=== PATIENT | female | born 1960 | race Caucasian/White ===

== ENCOUNTER 2022-12-12 12:18 | Outpatient (CLI) | payer BC | END 2022-12-12 12:19 | disposition home or self-care (01) | LOC: LAB 12:18 | PROVIDERS: ATTEND Naturopath | DX: N95.8 Other specified menopausal and perimenopausal disorders (principal); R53.83 Other fatigue | CPT/HCPCS: 36415; 82728; 84403 ==

== ENCOUNTER 2023-02-13 13:44 | Outpatient (CLI) | payer BC | END 2023-02-13 13:45 | disposition home or self-care (01) | LOC: LAB 13:44 | PROVIDERS: ATTEND Naturopath | DX: R53.83 Other fatigue (principal); Z11.9 Encounter for screening for infectious and parasitic diseases, unspecified | CPT/HCPCS: 36415; 82728; 84403; 86317 ==

== ENCOUNTER 2023-05-22 14:35 | Outpatient (CLI) | payer BC | END 2023-05-22 14:36 | disposition home or self-care (01) | LOC: LAB 14:35 | PROVIDERS: ATTEND Naturopath | DX: R53.83 Other fatigue (principal) | CPT/HCPCS: 36415; 84403 ==

== ENCOUNTER 2024-01-11 09:29 | Outpatient (CLI) | payer BC ==
[2024-01-11 15:14] LABS: BASOPHILS % (AUTO) 0.9 %; EOSINOPHILS # (AUTO) 0.1 10^3/uL (0.0-0.7); EOSINOPHILS % (AUTO) 1.5 %; HCT - HEMATOCRIT 38.7 % (37.0-47.0); HGB - HEMOGLOBIN 12.5 g/dL (12.0-16.0); LYMPHOCYTES # (AUTO) 1.7 10^3/uL (1.5-3.5); LYMPHOCYTES % (AUTO) 36.8 %; MEAN CORPUSCULAR HEMOGLOBIN 31.3 pg (27.0-31.0); MEAN CORPUSCULAR HGB CONC 32.3 g/dL (32.0-36.0); MEAN CORPUSCULAR VOLUME 96.8 fL (81.0-99.0); MEAN PLATELET VOLUME 11.1 fL (7.9-10.8); MONOCYTES # (AUTO) 0.3 10^3/uL (0.0-1.0); MONOCYTES % (AUTO) 7.4 %; NEUTROPHILS # (AUTO) 2.4 10^3/uL (1.5-6.6); NEUTROPHILS % (AUTO) 53.2 %; PLT - PLATELET COUNT 234 10^3/uL (130-450); RED CELL DISTRIBUTION WIDTH 12.9 % (12.0-15.0); WHITE BLOOD COUNT 4.6 x10^3/uL (4.8-10.8)
[2024-01-11 15:55] LABS: ALBUMIN 4.4 g/dL (3.2-5.5); ALBUMIN/GLOBULIN RATIO 2.1 (1.0-2.2); ALKALINE PHOSPHATASE 58 IU/L (42-121); ALT ALANINE AMINOTRANSFERASE 13 IU/L (10-60); AST ASPARTATE AMINOTRANSFERASE 21 IU/L (10-42); BILIRUBIN,TOTAL 0.5 mg/dL (0.2-1.0); BUN - BLOOD UREA NITROGEN 9 mg/dL (6-20); CALCIUM 9.6 mg/dL (8.5-10.3); CARBON DIOXIDE - CO2 30 mmol/L (21-32); CHLORIDE 106 mmol/L (101-111); CHOL/HDL RATIO 3.5 (<4.4); CHOLESTEROL 217 mg/dL; CREATININE 0.6 mg/dL (0.6-1.3); CRP - C-REACTIVE PROTEIN < 0.5 mg/dL (<0.5); GFR - MDRD 101 (>89); GLUCOSE 90 mg/dL (74-104); HDL CHOLESTEROL 62 mg/dL; LDL CHOLESTEROL,CALCULATED 133 mg/dL; LDL/HDL RATIO 2.1 (<4.4); POTASSIUM 4.5 mmol/L (3.5-4.5); SODIUM 139 mmol/L (135-145); TOTAL PROTEIN 6.5 g/dL (6.4-8.9); TRIGLYCERIDES 110 mg/dL (48-352); VLDL CHOLESTEROL 22 mg/dL
[2024-01-11 15:56] LABS: THYROID STIMULATING HORMONE 1.53 uIU/mL (0.34-5.60)
[2024-01-11 16:02] LABS: FERRITIN 121.9 ng/mL (11.0-306.8)
[2024-01-11 20:17] LABS: ESTIMATED AVERAGE GLUCOSE 103 mg/dL (70-100); HEMOGLOBIN A1c% 5.2 % (4.27-6.07)
== END 2024-01-11 09:30 | disposition home or self-care (01) ==
LOC: LAB.S 09:29
PROVIDERS: ATTEND Naturopath
DX: Z00.01 Encounter for general adult medical examination with abnormal findings (principal); D50.8 Other iron deficiency anemias; R53.83 Other fatigue; N95.8 Other specified menopausal and perimenopausal disorders
CPT/HCPCS: 36415; 80053; 80061; 81599; 82607; 82728; 82746; 83036; 83721; 84439; 84443; 84481; 85025; 86140